=== PATIENT | male | born 1960 | race Caucasian/White ===

== ENCOUNTER → 2017-10-11 | Outpatient (CLI) | payer BC ==
--- NOTE | 2017-10-11 12:07 | XR ---
EXAMINATION TYPE: XR lumbar spine 2 or 3V DATE OF EXAM: 10/11/2017 CLINICAL HISTORY: Back pain with fall one week ago TECHNIQUE: Frontal and lateral images of the lumbar spine are obtained. COMPARISON: None FINDINGS: There are 5 lumbar type vertebral bodies identified. The lumbar spine shows satisfactory alignment without evidence of acute fracture or dislocation. Vertebral body heights are maintained. 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 Mild to moderate multilevel degenerative di sc disease is displayed as anterior osteophytes and facet arthropathy. The overlying soft tissue appe ars unremarkable. IMPRESSION: No acute fracture or malalignment is seen in the lumbar spine. Mild to moderate multilev el degenerative change and postsurgical changes at L5.
--- NOTE | 2017-10-11 12:11 | XR ---
EXAMINATION TYPE: XR thoracic spine complete DATE OF EXAM: 10/11/2017 CLINICAL HISTORY: Fall with mid back pain. TECHNIQUE: Frontal, lateral, and swimmer's view of thoracic spine are obtained. COMPARISON: None. FINDINGS: Thoracic spine show satisfactory alignment without evidence of acute fracture or dislocatio n. Vertebral body heights and disc space heights are preserved. Visualized ribs are unremarkable. Mild multilevel degenerative changes are seen as anterior osteophytes. IMPRESSION: No acute fracture or malalignment is seen in the thoracic spine. Mild multilevel degener ative change.
== END | disposition home or self-care (01) ==
LOC: RADXRMAIN 11:18
PROVIDERS: ATTEND Internal Medicine
DX: M47.816 Spondylosis without myelopathy or radiculopathy, lumbar region (principal); M47.814 Spondylosis without myelopathy or radiculopathy, thoracic region; Z98.890 Other specified postprocedural states
CPT/HCPCS: 72072; 72100

== ENCOUNTER → 2019-12-28 | Outpatient (CLI) | payer BC, MEDICARE ==
[2019-12-28 12:28] LABS: Basophils # (A) 0.1 k/uL (0-0.2); Basophils % (A) 1 %; Eosinophils # (A) 0.1 k/uL (0-0.7); Eosinophils % (A) 2 %; HCT 49.3 % (39.0-53.0); Lymphocytes # (A) 1.7 k/uL (1.0-4.8); Lymphocytes % (A) 26 %; MCH 29.3 pg (25.0-35.0); MCHC 32.3 g/dL (31.0-37.0); MCV 90.6 fL (80.0-100.0); Monocytes # (A) 0.3 k/uL (0-1.0); Monocytes % (A) 5 %; Neutrophils # (A) 4.2 k/uL (1.3-7.7); Neutrophils % (A) 65 %; Platelet Count 223 k/uL (150-450); RBC 5.44 m/uL (4.30-5.90); RDW 13.5 % (11.5-15.5); WBC 6.5 k/uL (3.8-10.6)
[2019-12-28 20:13] LABS: African American GFR (CKD) 109.5 (60.0-200.0); Albumin 4.6 g/dL (3.80-4.90); Albumin/Globulin Ratio 2.71 (1.60-3.17); Anion Gap 6.7 mmol/L (4.00-12.00); BUN/Creat Ratio 18.89 Ratio (12.00-20.00); Calcium 9.2 mg/dL (8.7-10.3); Carbon Dioxide 26.3 mmol/L (21.6-31.8); Chol/HDL Ratio 3.07; Globulin 1.7 g/dL (1.6-3.3); LDL Cholesterol,Calculated 77.6 mg/dL (0.0-131.0); Non-African American GFR(CKD) 94.5 (60.0-200.0); Potassium 4.5 mmol/L (3.5-5.5); Total Bilirubin 1.1 mg/dL (0.2-1.2); Total Protein 6.3 g/dL (6.2-8.2); VLDL Calculation 13.4 mg/dL (5.00-40.00)
[2019-12-28 21:53] LABS: Hemoglobin A1C 6.7 % (4.0-6.0)
== END | disposition home or self-care (01) ==
LOC: LABWHC1 09:58
PROVIDERS: ATTEND Internal Medicine
DX: Z00.00 Encounter for general adult medical examination without abnormal findings (principal); N40.0 Benign prostatic hyperplasia without lower urinary tract symptoms; E78.2 Mixed hyperlipidemia; R73.03 Prediabetes
CPT/HCPCS: 36415; 80053; 80061; 83036; 84153; 84443; 85025

== ENCOUNTER → 2021-12-09 | Outpatient (CLI) | payer BC, MEDICARE ==
--- NOTE | 2021-12-09 17:43 | US ---
EXAMINATION TYPE: US venous doppler duplex LE RT DATE OF EXAM: 12/09/2021 5:03 PM COMPARISON: NONE CLINICAL HISTORY: M25.561 Pain in right knee, I80.9, M17.11, M23.231 derangeme. Rt leg pain SIDE PERFORMED: Right TECHNIQUE: The lower extremity deep venous system is examined utilizing real time linear array sonog silvio with graded compression, doppler sonography and color-flow sonography. VESSELS IMAGED: Common Femoral Vein Deep Femoral Vein Greater Saphenous Vein * Femoral Vein Popliteal Vein Small Saphenous Vein * Proximal Calf Veins (* superficial vessels) Right Leg: Negative for DVT IMPRESSION: No evidence of right leg deep vein thrombosis.
== END | disposition home or self-care (01) ==
LOC: RADUSWWP 16:33
PROVIDERS: ATTEND Orthopaedic Surgery
DX: M17.11 Unilateral primary osteoarthritis, right knee (principal); M79.604 Pain in right leg; M23.231 Derangement of other medial meniscus due to old tear or injury, right knee; I80.9 Phlebitis and thrombophlebitis of unspecified site

== ENCOUNTER → 2022-05-12 | Outpatient (CLI) | payer BC, MEDICARE ==
[~2022-05-12] MED LIST: REGADENOSON 0.4 MG/5 ML SYRINGE IV PRN
--- NOTE | 2022-05-12 09:14 | US ---
EXAMINATION TYPE: US carotid duplex BILAT DATE OF EXAM: 05/12/2022 COMPARISON: NONE CLINICAL HISTORY: I65.23 rickey carotid stenosis. heart can race, no h/o stroke TECHNIQUE: Carotid duplex ultrasound examination. Indirect Doppler criteria was utilized. FINDINGS: EXAM MEASUREMENTS: RIGHT: Peak Systolic Velocity (PSV) cm/sec ----- Right CCA: 110.0 ----- Right ICA: 91.5 ----- Right ECA: 122 ICA/CCA ratio: 0.8 RIGHT: End Diastole cm/sec ----- Right CCA: 26.6 ----- Right ICA: 51.9 ----- Right ECA: 9.8 LEFT: Peak Systolic Velocity (PSV) cm/sec ----- Left CCA: 120 ----- Left ICA: 86.3 ----- Left ECA: 102 ICA/CCA ratio: 0.7 LEFT: End Diastole cm/sec ----- Left CCA: 22.7 ----- Left ICA: 54.6 ----- Left ECA: 12.4 VERTEBRALS (direction of flow): Right Vertebral: Antegrade Left Vertebral: Antegrade Rhythm: Normal INSTRUCTIONAL TECHNOLOGIST NOTES: Mild homogeneous plaque with no stenosis Grayscale, color Doppler, spectral Doppler imaging performed the carotid arteries. Waveform analysis does not show significant stenosis of the internal carotid arteries. IMPRESSION: No hemodynamic significant stenosis of the proximal internal carotid arteries by Doppler criteria, an indirect measurement of carotid stenosis Criteria for Assigning % of Stenosis / Diameter reduction (Estimation based on the indirect measurements of the internal carotid artery velocities (ICA PSV). 1. Normal (no stenosis)=ICA PSV < 125 cm/s: ratio < 2.0: ICA EDV<40 cm/s. 2. Less than 50% stenosis=ICA PSV < 125 cm/s: ratio < 2.0: ICA EDV<40 cm/s. 3. 50 to 69% stenosis=ICA PSV of 125 to 230 cm/s: ration 2.0 ? 4.0: ICA EDV 40-100 cm/s. 4. Greater than 70% stenosis to near occlusion= ICA PSV > 230 cm/s: ratio > 4.0: ICA EDV > 100 cm/s. 5. Near occlusion= ICA PSV velocities may be low or undetectable: variable ratio and ICA EDV. 6. Total occlusion=unable to detect flow.
--- NOTE | 2022-05-12 12:58 | NM ---
EXAMINATION TYPE: NM stress lexiscan cardiolite DATE OF EXAM: 05/12/2022 COMPARISON: Prior exam 08/19/2015 HISTORY: Bilateral carotid stenosis, sinus bradycardia, abnormal EKG TECHNIQUE: After the intravenous administration of 10 mCi Tc 99m Sestamibi - Cardiolite resting SPEC T images acquired 45 minutes post injection. The patient received 0.4mg Lexiscan, 25.9 mCi Tc 99m Sestamibi - Stress images obtained [address] injection FINDINGS: Review of stress and rest SPECT images demonstrates decreased uptake along the lateral wall greater o n rest than on stress images. Decreased uptake is noted along anterior wall the left ventricle on str ess as compared to rest images. Gated analysis shows normal wall motion with an estimated left ventr icular ejection fraction of 45 %. 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 Elevated 3 t imes a day may be indicative of three-vessel coronary artery disease. A Yellow level critical message alert has been initiated for Oliverio Tucker MD via the [employer] Critical Results System on 05/12/2022 12:55 PM. This message alert has been sent to Oliverio Tucker MD v lencho the preferences provided by the clinician for the receipt of Radiology Critical Findings. Message ID [id number].
--- NOTE | 2022-05-13 13:31 | CA ---
Lexiscan Nuclear Stress Test Report Name: Azael Fields Exam Date: 05/12/2022 08:48 Exam Location: [place] Stress Ht (in): 72 Wt (lb): 260 BSA: 2.38 Ordering Phys: NADER Referring Phys: NADER,, Technologist: Niles White Age: 62 Gender: M : 1960 Procedure CPT: Indications: ICD-10 Codes: Patient History: DIFFICULTY IN BREATHING, PALPITATIONS, HTN, DIABETIC, ELEVATED CHOLESTEROL LEVELS, FAMILY HX OF HEART DISEASE Medications: METFORMIN, NORCO, LYRICA, ETODOLAC, CITALOPRAM, CADVET, XANAX, PROMETHOZINE, LEVOTHYROXIN, ESMOEPRAZIDE Meds past 24 hrs: Pretest Chest Pain: STRESS TEST Lexiscan Protocol Exercise Duration (min:sec): 01:[address] Depressions (mm): Angina Score: Matthew Score: Resting HR (bpm): 45 Peak HR (bpm): 60 Resting BP (mmHg): 143 / 82 Peak BP (mmHg): 143 / 82 MPHR: 160 Target HR: 136 % MPHR: 38 METS: 1.0 Total Dose: Peak Dose: Atropine: Double Product: 8580 BP Response: Stress Termination: INFUSION COMPLETE Stress Symptoms: STOMACH ACHE Stress Summary: ECG ANALYSIS Resting ECG: Stress ECG: CONCLUSIONS At baseline EKG showed normal sinus rhythm, and sinus bradycardia with heart rates in the 40s without significant ST-T wave abnormalities. Patient recieved IV infusion of Lexiscan 0.4mg and at peak infusion EKG showed occasional PACs however no significant ST or T wave abnormalities. Conclusions: 1. Normal EKG response to Lexiscan infusion 2. Nuclear imaging to be reported separately. Dr. Angel Bush DO (Electronically Signed) Final Date: 12 May 2022 09:38
== END | disposition home or self-care (01) ==
LOC: RADUSWWP 06:48
PROVIDERS: ATTEND Internal Medicine
DX: R00.1 Bradycardia, unspecified (principal); I65.23 Occlusion and stenosis of bilateral carotid arteries
CPT/HCPCS: 93017; 93880; 78452; A9500; J2785

== ENCOUNTER → 2022-05-26 | Outpatient (CLI) | payer BC, MEDICARE ==
[2022-05-27 01:14] LABS: HCT 45.9 % (39.6-50.0); HGB 14.7 g/dL (13.0-17.0); MCH 28.9 pg (27.0-32.0); MCV 90.2 fL (80.0-97.0); Mean Platelet Volume 10.9 fL (9.5-12.2); NRBC Per 100 WBC 0 /100 WBCS (0.0-0.0); Platelet Count 227 X 10*3/uL (140-440); RBC 5.09 X 10*6/uL (4.40-5.60); RDW 13.8 % (11.5-14.5); WBC 5.95 X 10*3/uL (4.50-10.00)
[2022-05-27 01:45] LABS: African American GFR (CKD) 72.1 (60.0-200.0); Anion Gap 11.4 mmol/L (10.00-18.00); Blood Urea Nitrogen 16.5 mg/dL (9.0-27.0); Non-African American GFR(CKD) 62.2 (60.0-200.0); Potassium 4.1 mmol/L (3.5-5.5)
== END | disposition home or self-care (01) ==
LOC: LABPAT 14:20
PROVIDERS: ATTEND Internal Medicine Interventional Cardiology
DX: Z01.812 Encounter for preprocedural laboratory examination (principal); R94.39 Abnormal result of other cardiovascular function study
CPT/HCPCS: 80051; 82565; 84520; 85027

== ENCOUNTER 2023-12-22 13:41 | Observation (INO) | payer BC, MEDICARE ==
--- NOTE | 2023-12-22 14:12 | ED ---
General Adult HPI - General Chief complaint: Chest Pain Stated complaint: Chest pain Time Seen by Provider: 12/22/23 13:55 Source: patient, RN notes reviewed, old records reviewed Mode of arrival: ambulatory Limitations: no limitations - History of Present Illness Initial comments: This is a 63-year-old male who presents to the emergency department complaining of feeling palpitations in his chest and having chest heaviness on the right side radiating down his right arm. Patient states it also made him sweaty and short of breath. Patient states he still feels it. Patient states this has happened many times before and he currently has a monitor on. Patient denies any fever chills or cough recently. Patient denies any abdominal pain patient has any nausea or vomiting. - Related Data Home Medications Medication Instructions Recorded Confirmed ALPRAZolam [Xanax] 0.5 mg PO BID 06/01/22 06/03/22 Aspirin [[place]ana Aspirin EC] 81 mg PO DAILY 06/01/22 06/03/22 Citalopram Hydrobromide 40 mg PO HS 06/01/22 06/03/22 [Citalopram HBr] Esomeprazole Magnesium 40 mg PO HS 06/01/22 06/03/22 Etodolac [Lodine] 400 mg PO BID 06/01/22 06/03/22 HYDROcodone/APAP 10-325MG [[place] 1 tab PO BID 06/01/22 06/03/22 10-325] Levothyroxine Sodium [Synthroid] 25 mcg PO DAILY 06/01/22 06/03/22 Pregabalin [Lyrica] 150 mg PO TID 06/01/22 06/03/22 Promethazine HCl 12.5 mg PO HS 06/01/22 06/03/22 amLODIPine/ATORVASTATIN [Caduet 5 1 tab PO HS 06/01/22 06/03/22 mg-20 mg Tablet] metFORMIN HCL 500 mg PO PC-SUPPER 06/01/22 06/03/22 Allergies Allergy/AdvReac Type Severity Reaction Status Date / Time No Known Allergies Allergy Verified 12/22/23 16:28 Review of Systems ROS Statement: Those systems with pertinent positive or pertinent negative responses have been documented in the HPI. ROS Other: All systems not noted in ROS Statement are negative. Past Medical History Past Medical History: No Reported History, Diabetes Mellitus, Hyperlipidemia, Hypertension History of Any Multi-Drug Resistant Organisms: None Reported Past Surgical History: No Surgical Hx Reported, Back Surgery, Cholecystectomy, O rthopedic Surgery Past Psychological History: No Psychological Hx Reported Smoking Status: Never smoker Past Alcohol Use History: None Reported Past Drug Use History: None Reported General Exam - General Exam Comments Initial Comments: GENERAL: Patient is well-developed and well-nourished. Patient is nontoxic and well- hydrated and is in mild distress. ENT: Neck is soft and supple. No significant lymphadenopathy is noted. Oropharynx is clear. Moist mucous membranes. Neck has full range of motion without eliciting any pain. EYES: The sclera were anicteric and conjunctiva were pink and moist. Extraocular movements were intact and pupils were equal round and reactive to light. Eyelids were unremarkable. PULMONARY: Unlabored respirations. Good breath sounds bilaterally. No audible rales rhonchi or wheezing was noted. CARDIOVASCULAR: Patient is tachycardic at 160 beats a minute. Patient is having irregular he artbeat ABDOMEN: Soft and nontender with normal bowel sounds. No palpable organomegaly was noted. There is no palpable pulsatile mass. SKIN: Skin is clear with no lesions or rashes and otherwise unremarkable. NEUROLOGIC: Patient is alert and oriented x3. Cranial nerves II through XII are grossly intact. Motor and sensory are also intact. Normal speech, volume and content. Symmetrical smile. MUSCULOSKELETAL: Normal extremities with adequate strength and full range of motion. No lower extremity swelling or edema. No calf tenderness. LYMPHATICS: No significant lymphadenopathy is noted PSYCHIATRIC: Normal psychiatric evaluation. Limitations: no limitations Course Vital Signs 12/22/23 12/22/23 12/22/23 13:54 14:04 14:24 Temperature 97.5 F L Pulse Rate 84 140 H Pulse Rate [ 160 H Wheel Presser ] Respiratory 18 18 Rate Blood Pressure 91/79 O2 Sat by Pulse 96 93 L Oximetry 12/22/23 12/22/23 12/22/23 14:26 14:35 14:40 Temperature Pulse Rate 135 H 131 H 133 H Pulse Rate [ Wheel Presser ] Respiratory 18 18 18 Rate Blood Pressure 81/61 82/72 86/70 O2 Sat by Pulse 98 95 Oximetry 12/22/23 12/22/23 12/22/23 14:50 15:00 15:12 Temperature Pulse Rate 133 H 130 H 131 H Pulse Rate [ Wheel Presser ] Respiratory 18 18 18 Rate Blood Pressure 73/43 87/42 72/41 O2 Sat by Pulse 94 L 93 L 4 L Oximetry 12/22/23 12/22/23 12/22/23 15:16 15:41 16:01 Temperature Pulse Rate 134 H 133 H 48 L Pulse Rate [ Wheel Presser ] Respiratory 18 18 18 Rate Blood Pressure 90/52 102/70 118/76 O2 Sat by Pulse 94 L 98 96 Oximetry Medical Decision Making - Medical Decision Making EKG is interpreted by myself EKG shows atrial flutter at 166 bpm QRS 128 QT interval is 240 QTc is 331. Patient's EKG shows diffuse ST segment depression EKG was interpreted by myself. Second EKG was done because the patient converted to a sinus bradycardia. EKG shows sinus bradycardia 52 bpm parables under 68 QRS is 105 QT interval is 4 3 QTc is 382. Was pt. sent in by a medical professional or institution (, PA, ASSOCIATE PATHOLOGIST, urgent care, hospital, or long term...) When possible be specific @ -No Did you speak to anyone other than the patient for history (EMS, parent, family, police, friend...)? What history was obtained from this source @ -No Did you review nursing and triage notes (agree or disagree)? Why? @ -I reviewed and agree with nursing and triage notes Were old charts reviewed (outside hosp., previous admission, EMS record, old EKG, old radiological studies, urgent care reports/EKG's, long term records)? Report findings @ -I compared today's EKG with prior EKG today's EKG shows atrial flutter at about 140 beats a minute. Differential Diagnosis (chest pain, altered mental status, abdominal pain women, abdominal pain men, vaginal bleeding, weakness, fever, dyspnea, syncope, headache, dizziness, GI bleed, back pain, seizure, CVA, palpatations, mental health, musculoskeletal)? @ -Differential Palpitations Ventricular arrhythmias, atrial arrhythmias, myocardial infarction, anemia, t hyrotoxicosis, electrolyte imbalance, hypokalemia, pulmonary embolism, pulmonary disease, drugs, alcohol, anxiety, stress.... This is not meant to be an all-inclusive list. EKG interpreted by me (3pts min.). @ -As above X-rays interpreted by me (1pt min.). @ -Chest x-ray shows no acute abnormality CT interpreted by me (1pt min.). @ -None done U/S interpreted by me (1pt. min.). @ -None done What testing was considered but not performed or refused? (CT, X-rays, U/S, labs)? Why? @ -None What meds were considered but not given or refused? Why? @ -None Did you discuss the management of the patient with other professionals (professionals i.e. DrAndrés, PA, ASSOCIATE PATHOLOGIST, lab, RT, psych nurse, social insurance specialist, batteryman, teacher, environmental conservation officer, casework specialist)? Give summary @ -I spoke with Dr. Tucker he came in and saw the patient in the emergency department and agreed to admit the patient Was smoking cessation discussed for >3mins.? @ -No Was critical care preformed (if so, how long)? @ -No Were there social determinants of health that impacted care today? How? (Homelessness, low income, unemployed, alcoholism, drug addiction, transportation, low edu. Level, literacy, decrease access to med. care, senior care, rehab)? @ -No Was there de-escalation of care discussed even if they declined (Discuss DNR or withdrawal of care, Hospice)? DNR status @ -No What co-morbidities impacted this encounter? (DM, HTN, Smoking, COPD, CAD, Cancer, CVA, ARF, Chemo, Hep., AIDS, mental health diagnosis, sleep apnea, morbid obesity)? @ -None Was patient admitted / discharged? Hospital course, mention meds given and route, prescriptions, significant lab abnormalities, going to OR and other pertinent info. @ -Patient was started on Cardizem after Cardizem bolus in the emergency department he eventually converted to normal sinus rhythm. Patient was started on heparin as well. Patient will be admitted to Dr. Tucker and I will write admitting orders and consult cardiology Undiagnosed new problem with uncertain prognosis? @ -No Drug Therapy requiring intensive monitoring for toxicity (Heparin, Nitro, Insulin, Cardizem)? @ -No Were any procedures done? @ -No Diagnosis/symptom? @ -Atrial flutter with rapid ventricular response Acute, or Chronic, or Acute on Chronic? @ -Acute Uncomplicated (without systemic symptoms) or Complicated (systemic symptoms)? @ -Complicated Side effects of treatment? @ -No Exacerbation, Progression, or Severe Exacerbation? @ -No Poses a threat to life or bodily function? How? (Chest pain, [place], [place], pneumonia, PE, COPD, DKA, ARF, appy, cholecystitis, CVA, Diverticulitis, Homicidal, Suicidal, threat to staff... and all critical care pts) @ -Yes this could lead to poor perfusion and end organ dysfunction - Lab Data Result diagrams: 12/22/23 14:19 12/22/23 14:19 Lab Results 12/22/23 12/22/23 12/22/23 Range/Units 14:19 14:19 14:19 WBC 8.4 (3.8-10.6) k/uL RBC 5.51 (4.30-5.90) m/uL Hgb 16.2 (13.0-17.5) gm/dL Hct 50.4 (39.0-53.0) % MCV 91.5 (80.0-100.0) fL MCH 29.3 (25.0-35.0) pg MCHC 32.1 (31.0-37.0) g/dL RDW 14.1 (11.5-15.5) % Plt Count 251 (150-450) k/uL MPV 8.3 Neutrophils % 65 % Lymphocytes % 23 % Monocytes % 6 % Eosinophils % 3 % Basophils % 1 % Neutrophils # 5.5 (1.3-7.7) k/uL Lymphocytes # 2.0 (1.0-4.8) k/uL Monocytes # 0.5 (0-1.0) k/uL Eosinophils # 0.2 (0-0.7) k/uL Basophils # 0.1 (0-0.2) k/uL PT 11.0 (10.0-12.5) sec INR 1.0 (<1.2) APTT 28.0 (22.0-30.0) sec Sodium 139 (137-145) mmol/L Potassium 4.6 (3.5-5.1) mmol/L Chloride 107 (98-107) mmol/L Carbon Dioxide 23 (22-30) mmol/L Anion Gap 9 mmol/L BUN 17 (9-20) mg/dL Creatinine 1.09 (0.66-1.25) mg/dL Est GFR (CKD-EPI)AfAm 84 (>60 ml/min/1.73 sqM) Est GFR (CKD-EPI)NonAf 73 (>60 ml/min/1.73 sqM) Glucose 129 H (74-99) mg/dL Calcium 9.2 (8.4-10.2) mg/dL Magnesium 1.9 (1.6-2.3) mg/dL Total Bilirubin 1.0 (0.2-1.3) mg/dL AST 30 (17-59) U/L ALT 40 (4-49) U/L Alkaline Phosphatase 125 (38-126) U/L Troponin I (0.000-0.034) ng/mL Total Protein 6.4 (6.3-8.2) g/dL Albumin 4.2 (3.5-5.0) g/dL TSH 1.890 (0.465-4.680) mIU/L 12/22/23 Range/Units 14:19 WBC (3.8-10.6) k/uL RBC (4.30-5.90) m/uL Hgb (13.0-17.5) gm/dL Hct (39.0-53.0) % MCV (80.0-100.0) fL MCH (25.0-35.0) pg MCHC (31.0-37.0) g/dL RDW (11.5-15.5) % Plt Count (150-450) k/uL MPV Neutrophils % % Lymphocytes % % Monocytes % % Eosinophils % % Basophils % % Neutrophils # (1.3-7.7) k/uL Lymphocytes # (1.0-4.8) k/uL Monocytes # (0-1.0) k/uL Eosinophils # (0-0.7) k/uL Basophils # (0-0.2) k/uL PT (10.0-12.5) sec INR (<1.2) APTT (22.0-30.0) sec Sodium (137-145) mmol/L Potassium (3.5-5.1) mmol/L Chloride (98-107) mmol/L Carbon Dioxide (22-30) mmol/L Anion Gap mmol/L BUN (9-20) mg/dL Creatinine (0.66-1.25) mg/dL Est GFR (CKD-EPI)AfAm (>60 ml/min/1.73 sqM) Est GFR (CKD-EPI)NonAf (>60 ml/min/1.73 sqM) Glucose (74-99) mg/dL Calcium (8.4-10.2) mg/dL Magnesium (1.6-2.3) mg/dL Total Bilirubin (0.2-1.3) mg/dL AST (17-59) U/L ALT (4-49) U/L Alkaline Phosphatase (38-126) U/L Troponin I <0.012 (0.000-0.034) ng/mL Total Protein (6.3-8.2) g/dL Albumin (3.5-5.0) g/dL TSH (0.465-4.680) mIU/L Critical Care Time Critical Care Time: Yes Total Critical Care Time: 35 Disposition Clinical Impression: Atrial flutter with rapid ventricular response Disposition: ADMITTED IP TO THIS [facility] Time of Disposition: 15:51
[2023-12-22] MEDS: SODIUM CHLORIDE 0.9% 1,000 ML IV ONE ×2 (14:20→14:50)
[2023-12-22] MEDS: DILTIAZEM 125 MG in SODIUM CHLORIDE 0.9% 100 ML IV SCH (14:22)
[2023-12-22] MEDS: DILTIAZEM DRIP BOLUS FROM BAG 1 MG SOLN IV ONE (14:23)
[2023-12-22 14:43] LABS: Basophils # (A) 0.1 k/uL (0-0.2); Basophils % (A) 1 %; Eosinophils # (A) 0.2 k/uL (0-0.7); Eosinophils % (A) 3 %; HCT 50.4 % (39.0-53.0); HGB 16.2 gm/dL (13.0-17.5); Lymphocytes % (A) 23 %; MCH 29.3 pg (25.0-35.0); MCHC 32.1 g/dL (31.0-37.0); MCV 91.5 fL (80.0-100.0); Mean Platelet Volume 8.3; Monocytes # (A) 0.5 k/uL (0-1.0); Monocytes % (A) 6 %; Neutrophils # (A) 5.5 k/uL (1.3-7.7); Neutrophils % (A) 65 %; Platelet Count 251 k/uL (150-450); RBC 5.51 m/uL (4.30-5.90); RDW 14.1 % (11.5-15.5); WBC 8.4 k/uL (3.8-10.6)
--- NOTE | 2023-12-22 14:57 | XR ---
EXAMINATION TYPE: XR chest 2V DATE OF EXAM: 12/22/2023 COMPARISON: 08/18/2012 INDICATION: Dysrhythmia and chest pain TECHNIQUE: Frontal and lateral views of the chest are obtained. FINDINGS: The heart size is normal. The pulmonary vasculature is normal. The lungs are clear. Electronic device over the left chest IMPRESSION: 1. No acute pulmonary process.
[2023-12-22 15:01] LABS: ALT 40 U/L (4-49); AST 30 U/L (17-59); African American GFR (CKD) 84 (>60 ml/min/1.73 sqM); Albumin 4.2 g/dL (3.5-5.0); Alkaline Phosphatase 125 U/L (38-126); Anion Gap 9 mmol/L; Blood Urea Nitrogen 17 mg/dL (9-20); Calcium 9.2 mg/dL (8.4-10.2); Carbon Dioxide 23 mmol/L (22-30); Chloride 107 mmol/L (98-107); Glucose 129 mg/dL (74-99); Magnesium 1.9 mg/dL (1.6-2.3); Non-African American GFR(CKD) 73 (>60 ml/min/1.73 sqM); Potassium 4.6 mmol/L (3.5-5.1); Sodium 139 mmol/L (137-145); Total Protein 6.4 g/dL (6.3-8.2)
[2023-12-22] MEDS ORDERED: NITROGLYCERIN SL TABS 0.4 MG TAB SUBLINGUAL PRN (15:51)
[2023-12-22] MEDS: HEPARIN SOD,PORK IN 0.45% NACL 25,000 UNIT in 0.45% NACL 1 250ML.BAG IV SCH (16:00)
[2023-12-22] MEDS: HEPARIN SODIUM 1,000 UN/ML (10ML VL) IV ONE (16:00)
[2023-12-22] MEDS: APIXABAN 5 MG TAB PO SCH (20:26)
[2023-12-22] MEDS: METOPROLOL TARTRATE 12.5 MG TAB PO SCH (20:30)
[2023-12-23] MEDS: ATORVASTATIN 40 MG TAB PO SCH (08:06)
[2023-12-23] MEDS: ASPIRIN 325 MG TAB PO SCH (08:06)
[2023-12-23] MEDS: PREGABALIN 100 MG CAP PO SCH (08:06)
[2023-12-23] MEDS: HYDROcodone/APAP 5-325MG 1 EACH TAB PO SCH (08:06)
[2023-12-23] MEDS: PARoxetine 10 MG TAB PO SCH (08:06)
[2023-12-23] MEDS: amLODIPine 5 MG TAB PO SCH (08:06)
[2023-12-23] MEDS: ALPRAZolam 0.25 MG TAB PO SCH (08:07)
[2023-12-23 08:18] VITALS: RESP 16; TEMP 97.8
[2023-12-23 08:52] LABS: Chol/HDL Ratio 2.88 Ratio; LDL Cholesterol,Calculated 51.8 mg/dL (0.0-131.0)
--- NOTE | 2023-12-23 11:50 | P.CRDCN ---
History of Present Illness Consult date: 12/23/23 Reason for Consult (text): Atrial flutter with RVR History of present illness: History of present illness: This is a 63-year-old male with past medical history of hypertension, hyperlipidemia, diabetes mellitus type 2, palpitations, family history of premature coronary artery disease, hypothyroidism, gastroesophageal reflux disease, generalized anxiety disorder, chronic back pain. Patient last saw Dr. Muro on 06/22/2022 and at that time recommended follow-up in 3 months. We have been asked to evaluate the patient for atrial flutter with RVR. Patient denies any previous history of atrial flutter or atrial fibrillation. He denies known coronary artery disease and has not had any stents placed. Patient presented to the hospital due to palpitations in his chest as well as some heaviness in his chest but he states this has resolved. Patient also had some sweatiness and shortness of breath. Patient admits that his states he snores but has not had a sleep study done. Discussed options of stress testing and patient states he does not think he can walk on a treadmill due to his 3 back surgeries and right leg numbness. Upon review of his previous Lexiscan which was abnormal, recommend patient try to do a walking stress echocardiogram and patient states that he will try to do the test. Patient's attending has started the patient on Eliquis 5 mg twice daily and metoprolol tartrate 12.5 mg twice daily. EKG #1 atrial flutter with ventricular rate of 166 bpm, #2 sinus rhythm 52 bpm, #3 sinus rhythm 51 bpm. Chest x-ray: No acute process Potassium 4.6, creatinine 1.09. Troponin negative x 3. Triglycerides 116, ch olesterol 115, LDL 51, HDL 40. TSH 1.89. Home cardiac medications: Amlodipine/atorvastatin 5-40 mg 1 tablet daily, also on levothyroxine, Ozempic and metformin. Lexiscan Cardiolite stress test performed 05/12/2022 revealed pharmacologically induced left ventricular myocardial ischemia. May be indicative of three-vessel coronary artery disease. Cardiac catheterization performed by Dr. Muro on 06/03/2022 revealed normal coronary arteries. Left dominance. Mildly elevated LVEDP. Review Of Systems: At the time of my exam: CONSTITUTIONAL: Denies fever or chills. HEENT: Denies blurred vision, vision changes, or eye pain. Denies hemoptysis CARDIOVASCULAR: Denies chest pain. Denies orthopnea. Denies PND. Denies palpitations RESPIRATORY: Denies shortness of breath. GASTROINTESTINAL: Denies abdominal pain. Denies nausea or vomiting. HEMATOLOGIC: Denies bleeding disorders. GENITOURINARY: Denies any blood in urine. SKIN: Denies pruitis. Denies rash. Physical examination: Gen: This is a obese 63-year-old male in no acute distress VS: reviewed, blood pressure 141/90, heart rate 4654, pulse ox 98% on room air. HEENT: Head is atraumatic, normocephalic. Pupils equal, round. Sclerae is an icteric. NECK: Supple. No JVD. LUNGS: Clear to auscultation. No wheezes or rhonchi. No intercostal retractions. HEART: Regular rate and rhythm. No murmur. ABDOMEN: Soft No tenderness. EXTREMITIES: No pedal edema. No calf tenderness. NEUROLOGICAL: Patient is awake, alert and oriented x3. Assessment: New onset of atrial flutter History of palpitations Hypertension Hyperlipidemia Diabetes mellitus type 2 Hypothyroidism with normal TSH Plan: Resume patient's home cardiac medications Continue Eliquis and metoprolol Reduce aspirin to 81 mg daily Obtain stress echocardiogram Obtain 2-D echocardiogram and Doppler study to assess cardiac structure and function Recommend outpatient sleep study If stress echocardiogram is unremarkable, patient is cleared for discharge home, and may follow-up with Dr. Muro in 1 to 2 weeks. If stress echocardiogram is abnormal, arrangements will be made for cardiac catheterization for further evaluation of possible ischemic cardiac disease. Thank you kindly for this consultation. Nurse practitioner note has been reviewed, I agree with documented findings and plan of care. Patient was seen and examined. Past Medical History Past Medical History: No Reported History, Diabetes Mellitus, Hyperlipidemia, Hypertension History of Any Multi-Drug Resistant Organisms: None Reported Past Surgical History: No Surgical Hx Reported, Back Surgery, Cholecystectomy, Orthopedic Surgery Past Psychological History: No Psychological Hx Reported Smoking Status: Never smoker Past Alcohol Use History: None Reported Past Drug Use History: None Reported Medications and Allergies Home Medications Medication Instructions Recorded Confirmed Type Esomeprazole Magnesium 40 mg PO DAILY 06/01/22 12/22/23 History Etodolac [Lodine] 400 mg PO BID 06/01/22 12/22/23 History Levothyroxine Sodium [Synthroid] 25 mcg PO AC-BRKFST 06/01/22 12/22/23 History Pregabalin [Lyrica] 300 mg PO BID 06/01/22 12/22/23 History metFORMIN HCL 500 mg PO PC-SUPPER 06/01/22 12/22/23 History ALPRAZolam [Xanax] 0.25 mg PO BID 12/22/23 12/22/23 History HYDROcodone/APAP 5-325MG [[place] 1 tab PO TID 12/22/23 12/22/23 History 5-325] PARoxetine HCL [Paxil] 30 mg PO DAILY 12/22/23 12/22/23 History Semaglutide [Ozempic] 2 mg SQ MEZA 12/22/23 12/22/23 History amLODIPine/ATORVASTATIN [Caduet 5 1 tab PO DAILY 12/22/23 12/22/23 History mg-40 mg Tablet] Allergies Allergy/AdvReac Type Severity Reaction Status Date / Time No Known Allergies Allergy Verified 12/22/23 16:28 Physical Exam Vitals: Vital Signs Temp Pulse Pulse Resp BP BP Pulse Ox 12/23/23 07:58 97.8 F 54 L 16 141/90 98 12/23/23 02:00 46 L 18 126/67 95 12/22/23 22:28 46 L 18 127/85 98 12/22/23 19:26 47 L 18 126/82 97 12/22/23 16:47 50 L 18 112/60 98 12/22/23 16:01 48 L 18 118/76 96 12/22/23 15:41 133 H 18 102/70 98 12/22/23 15:16 134 H 18 90/52 94 L 12/22/23 15:12 131 H 18 72/41 4 L 12/22/23 15:00 130 H 18 87/42 93 L 12/22/23 14:50 133 H 18 73/43 94 L 12/22/23 14:40 133 H 18 86/70 95 12/22/23 14:35 131 H 18 82/72 98 12/22/23 14:26 135 H 18 81/61 12/22/23 14:24 140 H 18 91/79 93 L 12/22/23 14:04 160 H 12/22/23 13:54 97.5 F L 84 18 96 Results 12/22/23 14:19 12/22/23 14:19 Cardiac Enzymes 12/22/23 12/22/23 12/22/23 Range/Units 14:19 14:19 17:29 AST 30 (17-59) U/L Troponin I <0.012 0.012 (0.000-0.034) ng/mL 12/22/23 Range/Units 21:04 AST (17-59) U/L Troponin I 0.026 (0.000-0.034) ng/mL Coagulation 12/22/23 12/22/23 Range/Units 14:19 21:04 PT 11.0 (10.0-12.5) sec APTT 28.0 28.7 (22.0-30.0) sec Lipids 12/22/23 Range/Units 14:19 Triglycerides 116.00 (0.00-149.00) mg/dL Cholesterol 115.00 (0.00-200.00) mg/dL HDL Cholesterol 40.00 (40.00-60.00) mg/dL Cholesterol/HDL Ratio 2.88 Ratio CBC 12/22/23 Range/Units 14:19 WBC 8.4 (3.8-10.6) k/uL RBC 5.51 (4.30-5.90) m/uL Hgb 16.2 (13.0-17.5) gm/dL Hct 50.4 (39.0-53.0) % Plt Count 251 (150-450) k/uL Comprehensive Metabolic Panel 12/22/23 Range/Units 14:19 Sodium 139 (137-145) mmol/L Potassium 4.6 (3.5-5.1) mmol/L Chloride 107 (98-107) mmol/L Carbon Dioxide 23 (22-30) mmol/L BUN 17 (9-20) mg/dL Creatinine 1.09 (0.66-1.25) mg/dL Glucose 129 H (74-99) mg/dL Calcium 9.2 (8.4-10.2) mg/dL AST 30 (17-59) U/L ALT 40 (4-49) U/L Alkaline Phosphatase 125 (38-126) U/L Total Protein 6.4 (6.3-8.2) g/dL Albumin 4.2 (3.5-5.0) g/dL Current Medications Generic Name Dose Route Start Last Admin Trade Name Ramses PRN Reason Stop Dose Admin Hydrocodone Bitart/Acetaminophen 1 each 12/23/23 09:00 12/23/23 08:06 Hydrocodone/Apap 5-325mg 1 Each Tab PO 1 each TID LAZARO Administration Alprazolam 0.25 mg 12/23/23 09:00 12/23/23 08:07 Alprazolam 0.25 Mg Tab PO 0.25 mg BID LAZARO Administration Amlodipine Besylate 5 mg 12/23/23 09:00 12/23/23 08:06 Amlodipine 5 Mg Tab PO 5 mg DAILY LAZARO Administration Apixaban 5 mg 12/22/23 21:00 12/23/23 08:06 Apixaban 5 Mg Tab PO 5 mg BID LAZARO Administration Protocol Aspirin 325 mg 12/23/23 09:00 12/23/23 08:06 Aspirin 325 Mg Tab PO 325 mg DAILY LAZARO Administration Atorvastatin Calcium 40 mg 12/23/23 09:00 12/23/23 08:06 Atorvastatin 40 Mg Tab PO 40 mg DAILY LAZARO Administration Levothyroxine Sodium 25 mcg 12/24/23 07:30 Levothyroxine 25 Mcg Tab PO AC-BRKFST COUNT INCLUDES THE [facility] Metformin HCl 500 mg 12/23/23 18:30 Metformin 500 Mg Tab PO PC-SUPPER COUNT INCLUDES THE [facility] Metoprolol Tartrate 12.5 mg 12/22/23 21:00 12/23/23 08:07 Metoprolol Tartrate 12.5 Mg Tab PO Not Given BID LAZARO Nitroglycerin 0.4 mg 12/22/23 15:51 Nitroglycerin Sl Tabs 0.4 Mg Tab SUBLINGUAL Q5M PRN Chest Pain Pantoprazole Sodium 40 mg 12/24/23 07:30 Pantoprazole 40 Mg Tablet PO AC-BRKFST COUNT INCLUDES THE [facility] Paroxetine HCl 30 mg 12/23/23 09:00 12/23/23 08:06 Paroxetine 10 Mg Tab PO 30 mg DAILY LZAARO Administration Pregabalin 300 mg 12/23/23 09:00 12/23/23 08:06 Pregabalin 100 Mg Cap PO 300 mg BID LAZARO Administration 12/22/23 14:19 12/22/23 14:19
--- NOTE | 2023-12-23 13:12 | CA ---
Stress Echo Report Azael Fields Age: 63 Gender: M : 1960 Exam Date: 12/23/2023 09:41 Exam Location: [place] [facility] Ht (in): 72 Wt (lb): 262 Ordering Physician: Arlyn Leal Referring Physician: [id number] Silva [employer] Operator: Cece Morrison RDCS Technologist Procedure CPT: Indication: Chest Pain ICD-9 Codes: Rhythm: Patient History: CHEST PAIN,PALPITATIONS, DIABETES, HTN, HYPERCHOLESTEROLEMIA, FAMILY HX OF HEART DISEASE, PRIOR HEART CATH, NUMBNESS IN RIGHT SIDED CHEST Cardiac Medications: Medications in past 24 hours: Contrast: Definity Stress Results Protocol: Delgado Total dose(mL): 3 Exercise Duration (min:sec): 6:[address] Depression (mm): Angina Score: Matthew Score: METS: 7.3 Resting HR: 60 Resting BP: 123 / 66 Peak HR: 105 Peak BP: 175 / 56 Max Predicted HR: 159 66 % Max Predicted HR Target HR: 135 Double Product: 33622 Stress Summary: BP Response: Reason for Termination: MAX EXERTION Cardiac Symptoms: NO SYMPTOMS ECG Analysis Resting ECG: Stress ECG: Arrhythmia: Echo Analysis Resting Echo: Peak Echo Analysis: MEASUREMENTS (Male/Female) Normal Values CONCLUSIONS Patient underwent exercise stress echo with a Delgado protocol treadmill stress test. Patient exercised into Stage 2 for a total of 6 minutes and 1 second reaching a total of 7.3 METS. Patient's maximum heart rate was 105 which represented 66% age- predicted maximum heart rate. Stress EKG portion: At baseline patient's EKG showed normal sinus rhythm, normal axis, no significant ST or T wave abnormalities with occasional PVCs. At peak exercise, EKG showed no significant change from baseline. Stress echo portion: 2-D echocardiogram was performed in the parasternal long, personal short, apical 2 and apical four-chamber views at rest, peak exercise and in recovery. At baseline, echocardiogram showed left ventricular ejection fraction 50-55% without wall motion abnormalities. With peak exercise, echocardiogram shows improvement in left ventricular ejection fraction, increase contractility, decrease in left ventricular end systolic dimension without wall motion abnormalities consistent with a normal response to exercise. Conclusions: 1. Inadequate stress test given inability to reach 85% maximum predicted heart rate 2. However at 66% maximum predicted heart rate, no inducible ischemia 3. Fair exercise tolerance Dr. Angel Bush DO (Electronically Signed) Final Date: 23 Dec 2023 13:11
[2023-12-23 15:06] VITALS: BP 141/83; PULSE 58
--- NOTE | 2023-12-23 16:46 | P.HPIM ---
History of Present Illness H&P Date: 12/22/23 Chief Complaint: Atrial flutter with rapid ventricular response. HISTORY OF PRESENT ILLNESS: This is a 63-year-old male with a previous medical history significant for hypertension and hypertensive cardiovascular disease, hyperlipidemia, diabetes mellitus type 2, hypothyroidism, history of anxiety disorder, history of obesity with possible obstructive sleep apnea and obesity hypoventilation syndrome, history of chronic low back pain status post posterior lumbar discectomy with fusion that was done at [facility] with significant radiculopathy to the right lower extremity, history of gastroesophageal flux disease, patient has been having issues with palpitations on and off has been under the care of Dr. Fay last time he was seen by norman leóny was back in June 2022 when he underwent left heart catheterization based on an abnormal stress test, it showed normal coronary artery with elevated LV and diastolic pressure, it was recommended that time to go for medical management, and follow-up as an outpatient, patient apparently was having palpitation and by the time he came to the ER last time his heart rate went back to normal, and the patient at this time he was sitting down all of a sudden he felt palpitations chest associated with increased right arm pain associated with shortness of breath, he was brought into the emergency department at [facility] he was found to have an atrial flutter with rapid ventricular res ponse, his heart rate was around 150-1 60, he was initially started on Cardizem drip, it 5 mg an hour, he was not given any boluses, due to his hypotension, then he was placed on normal saline 2 L x 1, his blood pressure normalizes, then he was started back on Cardizem drip, and while he was in the emergency department he was converted to a normal sinus rhythm with sinus bradycardia, he was started on metoprolol 12.5 mg orally twice every day along with Eliquis 5 mg orally twice every day, he was taken off heparin drip, he was seen in consultation by cardiology for evaluation and treatment. REVIEW OF SYSTEMS: Constitutional: No documented fever, no chills, no night sweats. No weight change. No weakness, fatigue or lethargy. No daytime sleepiness. EENT: No headache. No blurred vision or double vision, no loss of vision. No loss of Hearing, no ringing in the ears, no dizziness. No nasal drainage or congestion. No epistaxis. No sore throat. Lungs: positive for shortness of breath, no cough, no sputum production. No wheezing. Reports dyspnea with activity. Cardiovascular: posituve for rifgt sided chest pain, no lower extremity edema. No palpitations. No paroxysmal nocturnal dyspnea. No orthopnea. No lightheadedness or dizziness. No syncopal episodes. Abdominal: Reports abdominal pain. No nausea, vomiting. No diarrhea. No constipation. No bloody or tarry stools reports loss of appetite. Genitourinary: No dysuria, increased frequency, urgency. No urinary retention. Musculoskeletal: No myalgias. No muscle weakness, no gait dysfunction, no frequent falls. positive for back pain. No neck pain. Integumentary: No wounds, no lesions. No rash or pruritus. No unusual bruising. No change in hair or nails. Neurologic: No aphasia. No facial droop. No change in mentation. No head injury. No headache. No paralysis. No paresthesia. Psychiatric: No depression. No anxiety. No mood swings. Endocrine: No abnormal blood sugars. No weight change. PAST MEDICAL HISTORY: Hypertension and hypertensive cardiovascular disease. Hyperlipidemia. Diabetes mellitus type 2. Hypothyroidism. GERD with esophagitis. Chronic low back pain. Obesity with obstructive sleep apnea. Irritable bowel syndrome Enlarged prostate. PAST SURGICAL HISTORY: Posterior lumbar left laminectomy with fusion. Lumbar discectomy. SOCIAL HISTORY: Patient is a lifelong non-smoker, he denies any alcohol ingestion, he denies any drug use or abuse, he lives with his . FAMILY HISTORY: Father at the age 80 from CHF, coronary artery disease, diabetes mellitus type 2 with diabetic polyneuropathy, mother at age of 69 from leukemia, patient has 1 brother with diabetes and 1 sister with diabetes and he has 1 son and 1 daughter no major rectal problems. PHYSICAL EXAMINATION: General: 63-year-old male laying down in bed in no apparent distress. HEENT: Head is atraumatic, normocephalic, pupils were equal round reactive to light and recommendation, extraocular muscle movement were intact, sclera nonicteric, conjunctivae were pale, mucous membranes of the mouth are somewhat dry. Neck: Supple, no JVP, normal carotid upstroke bilaterally, no lymphadenopathy. Chest: Decreased breath sounds at the bases, few rhonchi, no expiratory wheezes, no chest wall tenderness, no intercostal retractions. Heart: First heart sound is normal, second heart sound is normal tachycardic, there is systolic ejection murmur 2/6 located in the left sternal border. Abdomen: Soft, nontender, nondistended, positive bowel sounds. Extremities: There is no edema no calf tenderness DP +2 bilaterally. Neurologic examination: Patient is awake alert and oriented x3, cranial nerves II-12 appear grossly intact, muscle power were 5 out of 5 in upper extremities and 5 out of 5 in bilateral lower extremities, deep tendon reflexes normal bilaterally. ASSESSMENT AND PLAN: 1. Atrial flutter with rapid ventricular response. Patient initially was started on Cardizem drip after given bolus of IV fluid, he was converted to sinus bradycardia, he was maintained on metoprolol 12.5 mg orally twice every day and hold for heart rate less than 50, and systolic blood pressure less than 100, he was also started on Eliquis 5 mg orally twice every day discontinue heparin drip, cardiology evaluation was obtained. It was recommended by cardiology for the patient to go for stress echo tomorrow morning, as well as arrange a sleep study as an outpatient. 2. Hypertension and hypertensive cardiovascular disease. Continue patient on metoprolol 12.5 mg orally twice every day, monitor the patient blood pressure very closely, continue amlodipine 5 mg orally once every day. 3. Mixed hyperlipidemia. Continue patient on atorvastatin 40 mg once every day, monitor lipid panel, keep LDL 55-70. 4. Diabetes mellitus type 2. Continue patient on metformin 500 mg orally twice every day, monitor the patient blood glucose level once every day. 5. Hypothyroidism. Continue patient on levothyroxine 25 mcg once every day, monitor the patient TSH and free T4. 6. History of chronic low back pain. Continue pregabalin 300 mg orally twice every day. 7. Anxiety disorder. Continue paroxetine 30 mg orally once every day. Patient may use Xanax as needed. Patient is aware of the side effect of benzodiazepine including tolerance and dependence. 8. Obesity with possible obstructive sleep apnea and obesity hypoventilation syndrome. Patient will need to have a sleep study as an outpatient. 9. GERD with esophagitis. Continue patient on PPI. 10. DVT prophylaxis. Continue patient on Eliquis 5 mg orally twice every day. 11. GI prophylaxis. Continue patient on PPI. 12. Admit to inpatient. Estimated length of stay 2 midnights. 13. Patient is full code. Past Medical History Past Medical History: No Reported History, Diabetes Mellitus, Hyperlipidemia, Hypertension History of Any Multi-Drug Resistant Organisms: None Reported Past Surgical History: No Surgical Hx Reported, Back Surgery, Cholecystectomy, Orthopedic Surgery Past Psychological History: No Psychological Hx Reported Smoking Status: Never smoker Past Alcohol Use History: None Reported Past Drug Use History: None Reported Medications and Allergies Home Medications Medication Instructions Recorded Confirmed Type Esomeprazole Magnesium 40 mg PO DAILY 06/01/22 12/22/23 History Etodolac [Lodine] 400 mg PO BID 06/01/22 12/22/23 History Levothyroxine Sodium [Synthroid] 25 mcg PO AC-BRKFST 06/01/22 12/22/23 History Pregabalin [Lyrica] 300 mg PO BID 06/01/22 12/22/23 History metFORMIN HCL 500 mg PO PC-SUPPER 06/01/22 12/22/23 History ALPRAZolam [Xanax] 0.25 mg PO BID 12/22/23 12/22/23 History HYDROcodone/APAP 5-325MG [[place] 1 tab PO TID 12/22/23 12/22/23 History 5-325] PARoxetine HCL [Paxil] 30 mg PO DAILY 12/22/23 12/22/23 History Semaglutide [Ozempic] 2 mg SQ MEZA 12/22/23 12/22/23 History amLODIPine/ATORVASTATIN [Caduet 5 1 tab PO DAILY 12/22/23 12/22/23 History mg-40 mg Tablet] Apixaban [Eliquis] 5 mg PO BID #60 tab 12/23/23 Rx Metoprolol Tartrate [Lopressor] 12.5 mg PO BID #60 tab 12/23/23 Rx Allergies Allergy/AdvReac Type Severity Reaction Status Date / Time No Known Allergies Allergy Verified 12/22/23 16:28 Physical Exam Vitals: Vital Signs Temp Pulse Pulse Resp BP BP Pulse Ox 12/23/23 08:10 54 L 12/23/23 07:58 97.8 F 54 L 16 141/90 98 12/23/23 02:00 46 L 18 126/67 95 12/22/23 22:28 46 L 18 127/85 98 12/22/23 19:26 47 L 18 126/82 97 12/22/23 16:47 50 L 18 112/60 98 12/22/23 16:01 48 L 18 118/76 96 12/22/23 15:41 133 H 18 102/70 98 12/22/23 15:16 134 H 18 90/52 94 L 12/22/23 15:12 131 H 18 72/41 4 L 12/22/23 15:00 130 H 18 87/42 93 L 12/22/23 14:50 133 H 18 73/43 94 L 12/22/23 14:40 133 H 18 86/70 95 12/22/23 14:35 131 H 18 82/72 98 12/22/23 14:26 135 H 18 81/61 12/22/23 14:24 140 H 18 91/79 93 L Intake and Output 12/22/23 12/23/23 12/23/23 22:59 06:59 14:59 Other: # Voids 1 # Bowel Movements 0 Results CBC & Chem 7: 12/22/23 14:19 12/22/23 14:19 Labs: Abnormal Lab Results - Last 24 Hours (Table) 12/22/23 Range/Units 14:19 Glucose 129 H (74-99) mg/dL
--- NOTE | 2023-12-23 16:49 | P.DS ---
Providers Date of admission: 12/22/23 15:53 Expected date of discharge: 12/23/23 Attending physician: Oliverio Tucker Consults: 12/22/23 15:51 Consult Physician Urgent Consulting Provider: [facility] Consult Reason/Comments: A flutter with rapid ventricular response Do you want consulting provider notified?: Yes Primary care physician: [facility] Course: HISTORY OF PRESENT ILLNESS: This is a 63-year-old male with a previous medical history significant for hypertension and hypertensive cardiovascular disease, hyperlipidemia, diabetes mellitus type 2, hypothyroidism, history of anxiety disorder, history of obesity with possible obstructive sleep apnea and obesity hypoventilation syndrome, history of chronic low back pain status post posterior lumbar discectomy with fusion that was done at [facility] with significant radiculopathy to the right lower extremity, history of gastroesophageal flux disease, patient has been having issues with palpitations on and off has been under the care of Dr. Fya last time he was seen by cardiology was back in June 2022 when he underwent left heart catheterization based on an abnormal stress test, it showed normal coronary artery with elevated LV and diastolic pressure, it was recommended that time to go for medical management, and follow-up as an outpatient, patient apparently was having palpitation and by the time he came to the ER last time his heart rate went back to normal, and the patient at this time he was sitting down all of a sudden he felt palpitations chest associated with increased right arm pain associated with shortness of breath, he was brought into the emergency department at [facility] he was found to have an atrial flutter with rapid ventricular response, his heart rate was around 150-1 60, he was initially started on Cardizem drip, it 5 mg an hour, he was not given any boluses, due to his hypotension, then he was placed on normal saline 2 L x 1, his blood pressure normalizes, then he was started back on Cardizem drip, and while he was in the emergency department he was converted to a normal sinus rhythm with sinus bradycardia, he was started on metoprolol 12.5 mg orally twice every day along with Eliquis 5 mg orally twice every day, he was taken off heparin drip, he was seen in consultation by cardiology for evaluation and treatment. 12/22: Patient is laying down in bed in no apparent distress, his monitor showing sinus bradycardia with a heart rate is about 51-52, his blood pressure is much better, he denies any chest pain, or any shortness of breath, he has no dizziness or lightheadedness at this time, he underwent stress echocardiogram that was submaximal as the patient went to 66% of his predicted maximum heart rate, he was cleared by cardiology to be discharged home, he was kept on Eliquis 5 mg orally twice every day, decrease his aspirin to 81 mg once every day, it was instructed for the patient to go for a sleep study as an outpatient, take his 30-day event monitor off, since the patient already was diagnosed with atrial flutter with rapid ventricular response. Patient is to stay on blood thinner, he is to stay on his medication and hold metoprolol for systolic blood pressure less than 100 or heart rate less than 50. And patient is aware of that. Discharge diagnoses: 1. Atrial flutter with rapid ventricular response. Back into sinus bradycardia. 2. Hypertension and hypertensive cardiovascular disease. 3. Mixed hyperlipidemia. 4. Diabetes mellitus type 2. 5. Hypothyroidism. 6. History of chronic low back pain. 7. Anxiety disorder. 8. Obesity with possible obstructive sleep apnea and obesity hypoventilation syndrome. Schedule sleep study as an outpatient. 9. GERD with esophagitis. Patient Condition at Discharge: Stable Plan - Discharge Summary New Discharge Prescriptions: New Apixaban [Eliquis] 5 mg PO BID #60 tab Metoprolol Tartrate [Lopressor] 12.5 mg PO BID #60 tab Continue Pregabalin [Lyrica] 300 mg PO BID metFORMIN HCL 500 mg PO PC-SUPPER amLODIPine/ATORVASTATIN [Caduet 5 mg-40 mg Tablet] 1 tab PO DAILY PARoxetine HCL [Paxil] 30 mg PO DAILY Levothyroxine Sodium [Synthroid] 25 mcg PO AC-BRKFST Etodolac [Lodine] 400 mg PO BID Esomeprazole Magnesium 40 mg PO DAILY Semaglutide [Ozempic] 2 mg SQ MEZA ALPRAZolam [Xanax] 0.25 mg PO BID HYDROcodone/APAP 5-325MG [[place] 5-325] 1 tab PO TID Discharge Medication List Esomeprazole Magnesium 40 mg PO DAILY 06/01/22 [History] Etodolac [Lodine] 400 mg PO BID 06/01/22 [History] Levothyroxine Sodium [Synthroid] 25 mcg PO AC-BRKFST 06/01/22 [History] Pregabalin [Lyrica] 300 mg PO BID 06/01/22 [History] metFORMIN HCL 500 mg PO PC-SUPPER 06/01/22 [History] ALPRAZolam [Xanax] 0.25 mg PO BID 12/22/23 [History] HYDROcodone/APAP 5-325MG [[place] 5-325] 1 tab PO TID 12/22/23 [History] PARoxetine HCL [Paxil] 30 mg PO DAILY 12/22/23 [History] Semaglutide [Ozempic] 2 mg SQ MEZA 12/22/23 [History] amLODIPine/ATORVASTATIN [Caduet 5 mg-40 mg Tablet] 1 tab PO DAILY 12/22/23 [History] Apixaban [Eliquis] 5 mg PO BID #60 tab 12/23/23 [Rx] Metoprolol Tartrate [Lopressor] 12.5 mg PO BID #60 tab 12/23/23 [Rx] Follow up Appointment(s)/Referral(s): Ngozi Muro MD [STAFF PHYSICIAN] - 1 Week Oliverio Tucker MD [Primary Care Provider] - 1 Week Patient Instructions/Handouts: Chest Pain (DC) Discharge Disposition: HOME SELF-CARE
[2023-12-23] MEDS ORDERED: metFORMIN 500 MG TAB PO SCH (18:30)
[2023-12-24] MEDS ORDERED: PANTOPRAZOLE 40 MG TABLET PO SCH (07:30)
[2023-12-24] MEDS ORDERED: LEVOTHYROXINE 25 MCG TAB PO SCH (07:30)
[2023-12-24] MEDS ORDERED: ASPIRIN 81 MG PO SCH (09:00)
== END 2023-12-23 17:17 | disposition home or self-care (01) ==
LOC: EC 13:41 → 3SCARD 15:53
PROVIDERS: ADMIT Internal Medicine; ATTEND Internal Medicine
DX: I48.92 Unspecified atrial flutter (principal); E11.9 Type 2 diabetes mellitus without complications; E03.9 Hypothyroidism, unspecified; F41.1 Generalized anxiety disorder; G89.29 Other chronic pain; M54.50 Low back pain, unspecified; I11.9 Hypertensive heart disease without heart failure; K21.00 Gastro-esophageal reflux disease with esophagitis, without bleeding; G47.33 Obstructive sleep apnea (adult) (pediatric); N40.0 Benign prostatic hyperplasia without lower urinary tract symptoms; K58.9 Irritable bowel syndrome, unspecified; E78.2 Mixed hyperlipidemia; E66.9 Obesity, unspecified; Z68.35 Body mass index [BMI] 35.0-35.9, adult; Z79.01 Long term (current) use of anticoagulants; Z79.82 Long term (current) use of aspirin; Z79.890 Hormone replacement therapy; Z79.899 Other long term (current) drug therapy; Z79.84 Long term (current) use of oral hypoglycemic drugs; Z82.49 Family history of ischemic heart disease and other diseases of the circulatory system
CPT/HCPCS: 96368; 96365; 96366 ×2; 99291; 36415; 93005; 93351; 80061; 80053; 83735; 84443; 84484; 85025; 85610; 85730; 71046; G0378 ×2; Q9957; J1644 ×2

== ENCOUNTER 2024-02-05 11:09 | Emergency (ER) | payer BC, MEDICARE ==
--- NOTE | 2024-02-05 11:38 | ED ---
Lower Extremity Injury HPI - General Stated Complaint: R Leg Brusing Time Seen by Provider: 02/05/24 11:36 Source: RN notes reviewed - History of Present Illness Initial Comments: 63-year-old male presenting with right leg bruising x 1 day. States he noticed that his right thigh and calf felt sore and tight for the past 3 days. This morning, he noticed that the back of his thigh and lower leg was bruised. He is currently on Eliquis for atrial flutter. Denies any known trauma or injury. He has never had this before. Denies chest pain or shortness of breath - Related Data Home Medications Medication Instructions Recorded Confirmed Esomeprazole Magnesium 40 mg PO DAILY 06/01/22 12/22/23 Etodolac [Lodine] 400 mg PO BID 06/01/22 12/22/23 Levothyroxine Sodium [Synthroid] 25 mcg PO AC-BRKFST 06/01/22 12/22/23 Pregabalin [Lyrica] 300 mg PO BID 06/01/22 12/22/23 metFORMIN HCL 500 mg PO PC-SUPPER 06/01/22 12/22/23 ALPRAZolam [Xanax] 0.25 mg PO BID 12/22/23 12/22/23 HYDROcodone/APAP 5-325MG [[place] 1 tab PO TID 12/22/23 12/22/23 5-325] PARoxetine HCL [Paxil] 30 mg PO DAILY 12/22/23 12/22/23 Semaglutide [Ozempic] 2 mg SQ MEZA 12/22/23 12/22/23 amLODIPine/ATORVASTATIN [Caduet 5 1 tab PO DAILY 12/22/23 12/22/23 mg-40 mg Tablet] Previous Rx's Medication Instructions Recorded Apixaban [Eliquis] 5 mg PO BID #60 tab 12/23/23 Metoprolol Tartrate [Lopressor] 12.5 mg PO BID #60 tab 12/23/23 Allergies Allergy/AdvReac Type Severity Reaction Status Date / Time No Known Allergies Allergy Verified 12/22/23 16:28 Review of Systems ROS Statement: Those systems with pertinent positive or pertinent negative responses have been documented in the HPI. ROS Other: All systems not noted in ROS Statement are negative. Past Medical History Past Medical History: No Reported History, Diabetes Mellitus, Hyperlipidemia, Hypertension History of Any Multi-Drug Resistant Organisms: None Reported Past Surgical History: No Surgical Hx Reported, Back Surgery, Cholecystectomy, Orthopedic Surgery Past Psychological History: No Psychological Hx Reported Smoking Status: Never smoker Past Alcohol Use History: None Reported Past Drug Use History: None Reported General Exam - General Exam Comments Initial Comments: Visual Physical Exam General: Well-appearing, nontoxic, no acute distress. Head: Normocephalic, atraumatic Eyes: PERRLA, EOMI ENT: Airway patent Chest: Nonlabored breathing Skin: No visual rash, normal skin tone Neuro: Alert and oriented 3 Musculoskeletal: No gross abnormalities General appearance: alert, in no apparent distress Head exam: Present: atraumatic, normocephalic, normal inspection Neck exam: Present: normal inspection. Absent: tenderness, meningismus, lymphadenopathy Respiratory exam: Present: normal lung sounds bilaterally. Absent: respiratory distress, wheezes, rales, rhonchi, stridor Cardiovascular Exam: Present: regular rate, normal rhythm, normal heart sounds. Absent: systolic murmur, diastolic murmur, rubs, gallop, clicks Right Hip exam: Present: normal inspection, full ROM. Absent: tenderness, swelling Upper Leg exam: Present: full ROM, tenderness. Absent: normal inspection (Deep purple contusions present over posterior aspect of right thigh and right lower leg. Nonblanching, firm, and mildly tender to palpation), deformity Knee exam: Present: normal inspection, full ROM. Absent: tenderness, swelling Lower Leg exam: Present: tenderness. Absent: normal inspection Ankle exam: Present: normal inspection, full ROM. Absent: tenderness, swelling Foot/Toe exam: Present: normal inspection, full ROM. Absent: tenderness, swelling Neurovascular tendon exam: Present: no vascular compromise. Absent: pulse deficit, abnormal cap refill, sensory deficit Course Vital Signs 02/05/24 02/05/24 02/05/24 11:44 14:00 15:00 Temperature 97.5 F L Pulse Rate 49 L 51 L 56 L Respiratory 20 16 14 Rate Blood Pressure 135/80 111/75 119/70 O2 Sat by Pulse 96 94 L 95 Oximetry Medical Decision Making - Medical Decision Making I completed the quick note portion of this chart signed Kendy Shaffer PA-C Was pt. sent in by a medical professional or institution ([facility] Melissa, INDIRECT FIRE INFANTRYMAN, urgent care, hospital, or [place] health care facility...) When possible be specific @ -No Did you speak to anyone other than the patient for history (EMS, parent, family, police, friend...)? What history was obtained from this source @ -Patient's supplemented history Did you review nursing and triage notes (agree or disagree)? Why? @ -I reviewed and agree with nursing and triage notes Were old charts reviewed (outside hosp., previous admission, EMS record, old EKG, old radiological studies, urgent care reports/EKG's, [place] health care facility records)? Report findings @ -No old charts were reviewed Differential Diagnosis (chest pain, altered mental status, abdominal pain women, abdominal pain men, vaginal bleeding, weakness, fever, dyspnea, syncope, headache, dizziness, GI bleed, back pain, seizure, CVA, palpatations, mental health, musculoskeletal)? @ -Differential Musculoskeletal Muscular strain, contusion, ligament sprain, fracture, arthritis, septic arthritis, bursitis, cellulitis, muscle spasm, nerve compression, DVT, arterial occlusion, herpes zoster, electrolyte abnormality, tumor.... This is not meant to be in all inclusive list EKG interpreted by me (3pts min.). @ -None X-rays interpreted by me (1pt min.). @ -X-ray of right femur and tib-fib reveals no acute fracture or osseous abnormality. CT interpreted by me (1pt min.). @ -None done U/S interpreted by me (1pt. min.). @ -Ultrasound right lower extremity reveals normal flow, compressibility, vascular waveforms. No evidence of DVT What testing was considered but not performed or refused? (CT, X-rays, U/S, labs)? Why? @ -None What meds were considered but not given or refused? Why? @ -None Did you discuss the management of the patient with other professionals (professionals i.e. ., PA, INDIRECT FIRE INFANTRYMAN, lab, RT, psych nurse, social worker delinquency prevention, missile tracking technician, teacher, aoc plans intelligence officer chief, medical case worker)? Give summary @ -No Was smoking cessation discussed for >3mins.? @ -No Was critical care preformed (if so, how long)? @ -No Were there social determinants of health that impacted care today? How? (Homelessness, low income, unemployed, alcoholism, drug addiction, transportation, low edu. Level, literacy, decrease access to med. care, group home, rehab)? @ -No Was there de-escalation of care discussed even if they declined (Discuss DNR or withdrawal of care, Hospice)? DNR status @ -No What co-morbidities impacted this encounter? (DM, HTN, Smoking, COPD, CAD, Cancer, CVA, ARF, Chemo, Hep., AIDS, mental health diagnosis, sleep apnea, morbid obesity)? @ -None Was patient admitted / discharged? Hospital course, mention meds given and route, prescriptions, significant lab abnormalities, going to OR and other pertinent info. @ -Patient was discharged. Patient was seen and evaluated for right leg bruising x 1 day. Patient is on Eliquis for atrial flutter. Denies known trauma or injury. Patient is neurovascularly intact. There is a large amount of bruising present on posterior aspect of thigh and lower leg. Lab work including CBC, CMP, coags is largely unremarkable. Ultrasound of right lower extremity reveals normal flow, compressibility, and vascular waveforms, no evidence of DVT. X-ray of right femur and tib-fib reveals no acute fracture or osseous abnormality. Discussed with patient that there are no signs of emergent etiology causing symptoms. I suspect contusion was caused by unknown trauma. Advise close follow-up with PCP next week. Strict return parameters discussed with patient and he shows understanding and agrees with plan. Case discussed with my attending Dr. Mcarthur. Patient discharged in stable condition. Undiagnosed new problem with uncertain prognosis? @ -No Drug Therapy requiring intensive monitoring for toxicity (Heparin, Nitro, Insuli n, Cardizem)? @ -No Were any procedures done? @ -No Diagnosis/symptom? @ -Right leg contusion Acute, or Chronic, or Acute on Chronic? @ -Acute Uncomplicated (without systemic symptoms) or Complicated (systemic symptoms)? @ -Uncomplicated Side effects of treatment? @ -No Exacerbation, Progression, or Severe Exacerbation? @ -No Poses a threat to life or bodily function? How? (Chest pain, [place], [place], pneumonia, PE, COPD, DKA, ARF, appy, cholecystitis, CVA, Diverticulitis, Homicidal, Suicidal, threat to staff... and all critical care pts) @ -Unlikely at this time - Lab Data Result diagrams: 02/05/24 12:39 02/05/24 12:39 Lab Results 02/05/24 02/05/2424 Range/Units 12:39 12:39 12:39 WBC 5.9 (3.8-10.6) k/uL RBC 4.69 (4.30-5.90) m/uL Hgb 14.1 (13.0-17.5) gm/dL Hct 42.8 (39.0-53.0) % MCV 91.3 (80.0-100.0) fL MCH 30.2 (25.0-35.0) pg MCHC 33.0 (31.0-37.0) g/dL RDW 13.8 (11.5-15.5) % Plt Count 232 (150-450) k/uL MPV 8.2 Neutrophils % 63 % Lymphocytes % 26 % Monocytes % 6 % Eosinophils % 2 % Basophils % 1 % Neutrophils # 3.7 (1.3-7.7) k/uL Lymphocytes # 1.5 (1.0-4.8) k/uL Monocytes # 0.4 (0-1.0) k/uL Eosinophils # 0.1 (0-0.7) k/uL Basophils # 0.1 (0-0.2) k/uL PT 10.9 (10.0-12.5) sec INR 1.0 (<1.2) APTT 30.3 H (22.0-30.0) sec Sodium 136 L (137-145) mmol/L Potassium 4.4 (3.5-5.1) mmol/L Chloride 106 (98-107) mmol/L Carbon Dioxide 26 (22-30) mmol/L Anion Gap 4 mmol/L BUN 19 (9-20) mg/dL Creatinine 0.87 (0.66-1.25) mg/dL Est GFR (CKD-EPI)AfAm >90 (>60 ml/min/1.73 sqM) Est GFR (CKD-EPI)NonAf >90 (>60 ml/min/1.73 sqM) Glucose 127 H (74-99) mg/dL Calcium 8.7 (8.4-10.2) mg/dL Total Bilirubin 1.4 H (0.2-1.3) mg/dL AST 33 (17-59) U/L ALT 27 (4-49) U/L Alkaline Phosphatase 104 (38-126) U/L Total Protein 6.1 L (6.3-8.2) g/dL Albumin 4.0 (3.5-5.0) g/dL Disposition Clinical Impression: Contusion of right leg Disposition: HOME SELF-CARE Condition: Stable Additional Instructions: Please elevate right leg and apply ice. Please follow-up with PCP next week for reevaluation. Please return to the Emergency Department if symptoms worsen or any other concerns. Is patient prescribed a controlled substance at d/c from ED?: No Referrals: Oliverio Tucker MD [Primary Care Provider] - 1-2 days Time of Disposition: 16:02
[2024-02-05 12:46] LABS: Basophils # (A) 0.1 k/uL (0-0.2); Basophils % (A) 1 %; Eosinophils # (A) 0.1 k/uL (0-0.7); Eosinophils % (A) 2 %; HCT 42.8 % (39.0-53.0); HGB 14.1 gm/dL (13.0-17.5); Lymphocytes # (A) 1.5 k/uL (1.0-4.8); Lymphocytes % (A) 26 %; MCH 30.2 pg (25.0-35.0); MCV 91.3 fL (80.0-100.0); Mean Platelet Volume 8.2; Monocytes # (A) 0.4 k/uL (0-1.0); Monocytes % (A) 6 %; Neutrophils # (A) 3.7 k/uL (1.3-7.7); Neutrophils % (A) 63 %; Platelet Count 232 k/uL (150-450); RBC 4.69 m/uL (4.30-5.90); RDW 13.8 % (11.5-15.5); WBC 5.9 k/uL (3.8-10.6)
[2024-02-05 13:00] LABS: ALT 27 U/L (4-49); AST 33 U/L (17-59); African American GFR (CKD) >90 (>60 ml/min/1.73 sqM); Alkaline Phosphatase 104 U/L (38-126); Anion Gap 4 mmol/L; Blood Urea Nitrogen 19 mg/dL (9-20); Calcium 8.7 mg/dL (8.4-10.2); Carbon Dioxide 26 mmol/L (22-30); Chloride 106 mmol/L (98-107); Glucose 127 mg/dL (74-99); Non-African American GFR(CKD) >90 (>60 ml/min/1.73 sqM); Potassium 4.4 mmol/L (3.5-5.1); Sodium 136 mmol/L (137-145); Total Bilirubin 1.4 mg/dL (0.2-1.3); Total Protein 6.1 g/dL (6.3-8.2)
[2024-02-05 13:15] LABS: Partial Thromboplastin Time 30.3 sec (22.0-30.0); Prothrombin Time 10.9 sec (10.0-12.5)
--- NOTE | 2024-02-05 13:19 | US ---
EXAMINATION TYPE: US venous doppler duplex LE RT DATE OF EXAM: 02/05/2024 11:39 AM COMPARISON: NONE CLINICAL INDICATION: Male, 63 years old with history of pain; Bruising right posterior thigh. Patient started blood thinner 2 weeks ago, AFIB SIDE PERFORMED: right TECHNIQUE: The lower extremity deep venous system is examined utilizing real time linear array sonog silvio with graded compression, doppler sonography and color-flow sonography. VESSELS IMAGED: Common Femoral Vein Deep Femoral Vein Greater Saphenous Vein * Femoral Vein Popliteal Vein Small Saphenous Vein * Proximal Calf Veins (* superficial vessels) Right Leg: No evidence of DVT IMPRESSION: Grayscale, color doppler, spectral doppler imaging performed of the deep veins of the lo wer extremities. There is normal flow, compressibility, vascular waveforms.
--- NOTE | 2024-02-05 15:10 | XR ---
EXAMINATION TYPE: XR femur RT DATE OF EXAM: 02/05/2024 2:42 PM CLINICAL INDICATION:Male, 63 years old with history of right leg bruising; COMPARISON: None TECHNIQUE: XR femur RT examined in Frontal and lateral projections. FINDINGS: No evidence of acute osseous pathology, joint dislocation, or soft tissue swelling. Mild o steophyte formations of the superior acetabulum. Mild joint space narrowing. IMPRESSION: 1. No acute osseous pathology. 2. Mild degeneration changes of the hip.
--- NOTE | 2024-02-05 15:10 | XR ---
EXAMINATION TYPE: XR tibia fibula RT DATE OF EXAM: 02/05/2024 2:42 PM CLINICAL INDICATION:Male, 63 years old with history of right leg bruising; [facility] COMPARISON: None TECHNIQUE: XR tibia fibula RT; tibia/fibula was examined in AP and lateral projections. FINDINGS: Periosteal reaction noted along the posterior fibula nonaggressive features. No evidence of any acute osseous pathology, joint dislocation, or soft tissue swelling is noted. Degeneration head es of the ankle with osteophyte formation and joint space narrowing. Calcaneal plantar spurring and A chilles enthesophyte formation. Moderate degeneration changes of the knee with osteophyte formation a nd joint space narrowing. IMPRESSION: 1. No evidence of acute fracture. 2. Moderate knee osteoarthrosis. 3. Chronic nonaggressive appearing periosteal reaction of the fibula.
[2024-02-05 15:29] VITALS: TEMP 97.5
[2024-02-05 16:40] VITALS: BP 160/68; PULSE 68; RESP 16
== END 2024-02-05 16:46 | disposition home or self-care (01) ==
LOC: EC 11:09
DX: S80.11XA Contusion of right lower leg, initial encounter (principal); X58.XXXA Exposure to other specified factors, initial encounter
CPT/HCPCS: 36415; 80053; 85025; 85610; 85730; 99284

== ENCOUNTER → 2024-04-11 | Outpatient (CLI) | payer BC, MEDICARE ==
[2024-04-11 15:26] LABS: Carbon Dioxide 25.4 mmol/L (21.6-31.8); Chloride 102 mmol/L (96-109); Potassium 4.7 mmol/L (3.5-5.5); Sodium 138 mmol/L (135-145)
[2024-04-11 15:42] LABS: HCT 47.1 % (39.6-50.0); HGB 15.6 g/dL (13.0-17.0); MCH 29.8 pg (27.0-32.0); MCHC 33.1 g/dL (32.0-37.0); MCV 90.1 FL (80.0-97.0); Mean Platelet Volume 11.2 FL (9.5-12.2); NRBC Per 100 WBC 0 X 10*3/uL (0.00-0.01); Platelet Count 233 X 10*3/uL (140-440); RBC 5.23 X 10*6/uL (4.40-5.60); RDW 13.4 % (11.5-14.5); WBC 6.01 X 10*3/uL (4.50-10.00)
== END | disposition home or self-care (01) ==
LOC: LABPAT 08:47
PROVIDERS: ATTEND Internal Medicine Clinical Cardiac Electrophysiology
DX: Z01.818 Encounter for other preprocedural examination
CPT/HCPCS: 80051; 82565; 84520; 85027

== ENCOUNTER 2024-04-20 07:53 | Day surgery (SDC) | payer BC, MEDICARE ==
[2024-04-14 11:30] VITALS: BMI 35.2
[2024-04-20] MEDS: SODIUM CHLORIDE 0.9% 1,000 ML IV ONE (08:15)
[2024-04-20 08:39] LABS: Glucose,Whole Blood 99 mg/dL (70-110)
[2024-04-20 09:26] LABS: ALT 32 U/L (4-49); AST 28 U/L (17-59); African American GFR (CKD) 81 (>60 ml/min/1.73 sqM); Albumin 4.3 g/dL (3.5-5.0); Alkaline Phosphatase 133 U/L (38-126); Anion Gap 6 mmol/L; Blood Urea Nitrogen 13 mg/dL (9-20); Calcium 9.1 mg/dL (8.4-10.2); Carbon Dioxide 33 mmol/L (22-30); Chloride 102 mmol/L (98-107); Glucose 98 mg/dL (74-99); Non-African American GFR(CKD) 70 (>60 ml/min/1.73 sqM); Potassium 4.7 mmol/L (3.5-5.1); Sodium 141 mmol/L (137-145); Total Bilirubin 0.8 mg/dL (0.2-1.3); Total Protein 6.4 g/dL (6.3-8.2)
[2024-04-20] MEDS: HEPARIN SODIUM,PORCINE 10,000 UNIT in SODIUM CHLORIDE 0.9% 1,000 ML IRRIGATION ONE (09:40)
[2024-04-20] MEDS: IV FLUID CONTINUATION 1,000 ML IV ONE (09:40)
[2024-04-20] MEDS: HEPARIN SODIUM (1,000 UNIT/ML) 1,000 UNIT in SODIUM CHLORIDE 0.9% 1,000 ML IRRIGATION ONE (09:41)
[2024-04-20] MEDS ORDERED: MIDAZOLAM 2 MG/2 ML VIAL ONE (09:47)
[2024-04-20] MEDS ORDERED: fentaNYL (PF) 50 MCG/ML 2 ML AMP ONE (09:47)
[2024-04-20] MEDS ORDERED: ISOPROTERENOL 250 MCG/1.25 ML SYR IV ONE (09:47)
[2024-04-20] MEDS: LIDOCAINE 1% INJ 10MG/ML (20 ML MDV) SQ ONE ×3 (10:23→10:27)
[2024-04-20] MEDS: ROPIVACAINE 5 MG/ML 30 ML VIAL MISCELLANE ONE (10:25)
--- NOTE | 2024-04-20 12:58 | P.CRDCN ---
History of Present Illness History of present illness: This is Dr. Wilde dictating an H/P on this patient The patient was interviewed and examined IMPRESSION / ASSESSMENT: Recurrent palpitations Recurrent SVT drug refractory, associated with presyncope and chest discomfort Normal coronary arteries in 2021, normal stress test PLAN: Diagnose EP study and ablation for SVT Patient was treated with Eliquis for atrial flutter but the twelve-lead EKG was consistent with AV little reentry rather than atrial flutter. Eliquis will be discontinued HPI Patient has been experiencing recurrent episodes of SVT for the last 6 to 12 months. These are associated with presyncope and chest discomfort No recent episodes of syncope or chest pain Denies any fever chills cough expectoration No orthopnea PND ROS: No fever chills or rigors, no cough, phlegm or expectoration, no nausea, vomiting or diarrhea, no hematuria, dysuria, no musculoskeletal complaints, no strokes or seizures, no skin lesions. EXAMINATION: Afebrile pulse rate 54 beats a minute Blood pressure 133/80 Heart sounds S1-S2 normal Breath sounds are clear No JVD No lower extremity edema REVIEW OF LABS, ECG & MEDICAL DATA Sodium 141 potassium 4.7 BUN 13 and creatinine 1.1 TSH normal at 1.1 Past Medical History Past Medical History: Atrial Flutter, Chest Pain / Angina, Diabetes Mellitus, Hyperlipidemia, Hypertension Additional Past Medical History / Comment(s): SEE DR WILDE'S H&P History of Any Multi-Drug Resistant Organisms: None Reported Past Surgical History: Back Surgery, Cholecystectomy, Orthopedic Surgery Additional Past Surgical History / Comment(s): RIGHT KNEE SCOPE Past Anesthesia/Blood Transfusion Reactions: No Reported Reaction Past Psychological History: Anxiety Smoking Status: Never smoker Past Alcohol Use History: None Reported Past Drug Use History: None Reported Medications and Allergies Home Medications Medication Instructions Recorded Confirmed Type RX: Esomeprazole Magnesium 40 mg PO DAILY 06/01/22 04/14/24 History RX: Levothyroxine Sodium 25 mcg PO AC-BRKFST 06/01/22 04/14/24 History [Synthroid] RX: Pregabalin [Lyrica] 150 mg PO TID 06/01/22 04/20/24 History RX: metFORMIN HCL 500 mg PO PC-SUPPER 06/01/22 04/14/24 History RX: ALPRAZolam [Xanax] 0.25 mg PO BID 12/22/23 04/14/24 History RX: Apixaban [Eliquis] 5 mg PO BID #60 tab 12/23/23 04/20/24 Rx Cholecalciferol [Vitamin D3 (25 25 mcg PO DAILY 04/14/24 04/14/24 History Mcg = 1000 Iu)] Cyclobenzaprine [Flexeril] 5 mg PO HS 04/14/24 04/14/24 History DULoxetine HCL [Cymbalta] 60 mg PO DAILY 04/14/24 04/14/24 History HYDROcodone/APAP 10-325MG [[place] 1 tab PO BID 04/14/24 04/20/24 History 10-325] Meclizine [Antivert] 25 mg PO BID 04/14/24 04/14/24 History Metoprolol Tartrate [Lopressor] 25 mg PO DIRECTED PRN 04/14/24 04/20/24 History RX: Magnesium 250 mg PO DAILY 04/14/24 04/14/24 History Tirzepatide [Mounjaro] 10 mg SQ MO 04/14/24 04/20/24 History amLODIPine/ATORVASTATIN 1 tab PO DAILY 04/14/24 04/14/24 History [amLODIPine/ATORVASTATIN 5-20 MG] Allergies Allergy/AdvReac Type Severity Reaction Status Date / Time No Known Allergies Allergy Verified 04/20/24 08:32 Physical Exam Vitals: Vital Signs Temp Pulse Resp BP Pulse Ox 04/20/24 09:30 98 F 54 L 16 133/80 96 Intake and Output 04/19/24 04/20/24 04/20/24 22:59 06:59 14:59 Intake Total 1040 Balance 1040 Intake: IV 1040 Other: Weight 117.1 kg Results 04/20/24 08:25 Cardiac Enzymes 04/20/24 Range/Units 08:25 AST 28 (17-59) U/L Comprehensive Metabolic Panel 04/20/24 Range/Units 08:25 Sodium 141 (137-145) mmol/L Potassium 4.7 (3.5-5.1) mmol/L Chloride 102 (98-107) mmol/L Carbon Dioxide 33 H (22-30) mmol/L BUN 13 (9-20) mg/dL Creatinine 1.12 (0.66-1.25) mg/dL Glucose 98 (74-99) mg/dL Calcium 9.1 (8.4-10.2) mg/dL AST 28 (17-59) U/L ALT 32 (4-49) U/L Alkaline Phosphatase 133 H (38-126) U/L Total Protein 6.4 (6.3-8.2) g/dL Albumin 4.3 (3.5-5.0) g/dL Current Medications Generic Name Dose Route Start Last Admin Trade Name Freq PRN Reason Stop Dose Admin Sodium Chloride 1,000 mls @ 20 mls/hr 04/20/24 06:02 Saline 0.9% IV 05/20/24 06:01 .Q24H LAZARO Intake and Output 04/19/24 04/20/24 04/20/24 22:59 06:59 14:59 Intake Total 1040 Balance 1040 Intake: IV 1040 Other: Weight 117.1 kg Patient Weight 04/21/24 06:59 Weight 117.1 kg 04/20/24 08:25
--- NOTE | 2024-04-20 13:06 | P.EPPROC ---
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 Written informed consent was obtained prior to the procedure. Venous sheaths were placed in the right left femoral veins. Diagnostic catheters were positioned in the high right atrium His bundle area right ventricle and coronary sinus. A full diagnostic EP study was performed Sinus cycle length 1248 ms, MS interval 153 ms, QRS 161 ms and QT 480 ms AH 108 ms and HV interval 35 ms Sheri response was noted to Para-Hisian pacing Sinus node recovery x 1 normal and were 1321, 1498 and 1368 ms AV node Wenckebach block 320 ms. Slow pathway conduction at 360 ms VA Wenckebach block 410 ms No delta waves noted SVT was induced with atrial extra stimulation from the high right atrium with double extrastimuli Short septal times Despite multiple attempts, the tachycardia could not be entrained from the RV, simply dissociated Once induce tachycardia is almost incessant A long sheath was placed. An irrigated tip catheter was placed. RF ablation was performed from the os of the coronary sinus 2 words more anteriorly. Short linear RF lesion set was delivered. Good contact force power used. Following that the tachycardia is rendered noninducible Lots of junctional rhythm obtained during RF lesions Following that testing both on and off high-dose Isopril revealed presence of the slow pathway but without induction of AV sheri reentry Up to triple extrastimuli from the high right atrium and the coronary sinus performed no inducible SVT on and off Isopril Ventricular extra stimulation performed. No inducible arrhythmias All catheters were then removed. Closure devices applied and hemostasis achie abimbola Patient tolerated the procedure well without any acute complication
[2024-04-20] MEDS ORDERED: ACETAMINOPHEN TAB 325 MG TAB PO PRN (13:07)
[2024-04-20] MEDS: SODIUM CHLORIDE 0.9% 1,000 ML IV SCH (15:03)
[2024-04-20] MEDS: PREGABALIN 75 MG CAP PO SCH (15:56)
[2024-04-20] MEDS: ACETAMINOPHEN IV (For NPO) 1,000 MG in EMPTY BAG 1 BAG IVPB ONE (15:59)
[2024-04-20 16:03] VITALS: RESP 16
[2024-04-20 17:07] LABS: Glucose,Whole Blood 110 mg/dL (70-110)
[2024-04-20] MEDS: metFORMIN 500 MG TAB PO SCH (18:14)
[2024-04-20 18:32] LABS: Basophils % (A) 1 %; Eosinophils # (A) 0.1 k/uL (0-0.7); Eosinophils % (A) 1 %; HCT 44.2 % (39.0-53.0); HGB 14.6 gm/dL (13.0-17.5); Lymphocytes % (A) 17 %; MCV 90.7 fL (80.0-100.0); Mean Platelet Volume 7.9; Monocytes # (A) 0.4 k/uL (0-1.0); Monocytes % (A) 7 %; Neutrophils # (A) 4.3 k/uL (1.3-7.7); Neutrophils % (A) 72 %; Platelet Count 218 k/uL (150-450); RBC 4.87 m/uL (4.30-5.90); RDW 13.6 % (11.5-15.5); WBC 5.9 k/uL (3.8-10.6)
[2024-04-20] MEDS: ALPRAZolam 0.25 MG TAB PO SCH (21:04)
[2024-04-21] MEDS: LEVOTHYROXINE 25 MCG TAB PO SCH (06:35)
[2024-04-21 07:42] VITALS: BP 140/81; PULSE 63; TEMP 97.7
--- NOTE | 2024-04-21 08:34 | P.PN ---
Subjective Patient is doing well. 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 His EKG was consistent with AV little reentry not atrial flutter Hypertension Dyslipidemia Plan Minimize use of metoprolol. Patient often has spontaneous junctional rhythm even when awake Continue antihypertensive therapy and statins Follow-up with Dr. Muro Objective - Vital Signs Vital signs: Vital Signs Temp 97.7 F 04/21/24 07:00 Pulse 63 04/21/24 07:00 Resp 16 04/21/24 07:00 BP 140/81 04/21/24 07:00 Pulse Ox 97 04/21/24 07:00 FiO2 Intake & Output 04/20/24 04/21/24 04/21/24 18:59 06:59 18:59 Intake Total 1728 480 Balance 1728 480 Weight 117.1 kg Intake: IV 1040 Oral 688 480 Other: Voiding Method Toilet # Voids 3 - Labs CBC & Chem 7: 04/20/24 17:49 04/20/24 08:25 Labs: Abnormal Lab Results - Last 24 Hours (Table) 04/20/24 Range/Units 08:25 Carbon Dioxide 33 H (22-30) mmol/L Alkaline Phosphatase 133 H (38-126) U/L
[2024-04-21] MEDS: DULoxetine HCL 60 MG CAPSULE.DR PO SCH (08:54)
[2024-04-21] MEDS: PANTOPRAZOLE 40 MG TABLET PO SCH (08:55)
[2024-04-21] MEDS: amLODIPine 5 MG TAB PO SCH (08:55)
[2024-04-21] MEDS: MAGNESIUM OXIDE 400 MG TAB PO SCH (08:55)
[2024-04-21] MEDS: ATORVASTATIN 20 MG TAB PO SCH (08:55)
== END 2024-04-21 11:27 | disposition home or self-care (01) ==
LOC: CATHCVL 07:53 → 6NMEDSUR 12:35 → EDSTATUS 12:55 → CATHCVL 04-21 11:27
PROVIDERS: ATTEND Internal Medicine Clinical Cardiac Electrophysiology
CPT/HCPCS: 80053; 84443; 85025; 86850; 86900; 86901; 93005; 93623; 93653